=== PATIENT | female | born 1990 | race Caucasian/White ===

== ENCOUNTER 2016-04-24 12:20 | Emergency (ER) | payer OTHER ==
[2016-04-24 12:58] VITALS: BP 112/70; PULSE 109; TEMP 102.9; BMI 31.5
[2016-04-24] MEDS ORDERED: IBUPROFEN 400 MG TABLET (FP) PO ONE ×2 (14:04→14:06)
[2016-04-24] MEDS ORDERED: DEXAMETHASONE SOD PHOSPHATE 10 MG/1 ML VIAL IM ONE (14:29)
--- NOTE | 2016-04-24 14:29 | PDOC ---
History of Present Illness - General Chief Complaint: Sore Throat Stated Complaint: SORE THROAT Time Seen by Provider: 04/24/16 13:22 History Source: Patient Exam Limitations: No Limitations - History of Present Illness Initial Comments: 04/24/16 14:25 cc SORE THROAT, FEVER, CHILLS' COUGHJING X 2 DAYS Timing/Duration: getting worse Severity: moderate Associated Symptoms: reports: cough, fever/chills, malaise. denies: nausea/ vomiting, rash Past History - Past Medical History Allergies/Adverse Reactions: Allergies Allergy/AdvReac Type Severity Reaction Status Date / Time No Known Allergies Allergy Verified 04/24/16 12:53 Home Medications: Ambulatory Orders NK [No Known Home Medication] 04/24/16 Asthma: No Cancer: No Cardiac Disorders: No Diabetes: No HTN: No Seizures: No Thyroid Disease: No Comment:: 04/24/16 14:26 HX CLEFT PALATE - Psycho/Social/Smoking Cessation Hx Anxiety: No Suicidal Ideation: No Smoking History: Never smoked Have you smoked in the past 12 months: No Hx Alcohol Use: No Drug/Substance Use Hx: No Substance Use Type: None Hx Substance Use Treatment: No Review of Systems - Review of Systems Constitutional: Yes: Chills, Fever, Malaise HEENTM: Yes: Throat Pain, Throat Swelling Respiratory: Yes: Cough. No: SOB with Exertion, Stridor, Wheezing Cardiac (ROS): No: Symptoms Reported, Chest Pain *Physical Exam - Vital Signs Last Vital Signs Temp Pulse Resp BP Pulse Ox 102.9 F H 109 H 16 112/70 96 04/24/16 12:54 04/24/16 12:54 04/24/16 12:54 04/24/16 12:54 04/24/16 12:54 - Physical Exam General Appearance: Yes: Appropriately Dressed. No: Apparent Distress, Moderate Distress HEENT: positive: TMs Normal, Pharyngeal Erythema, Tonsillar Exudate, Tonsillar Erythema. negative: TM Bulging, TM Dull, TM Erythema Neck: positive: Supple, Lymphadenopathy (R), Lymphadenopathy (L). negative: Tender, Rigid Respiratory/Chest: positive: Lungs Clear, Normal Breath Sounds. negative: Chest Tender, Accessory Muscle Use, Wheezing Cardiovascular: positive: Regular Rhythm, Regular Rate. negative: Murmur ED Treatment Course - ADDITIONAL ORDERS Additional order review: 04/24/16 13:50 Influenza Types A,B Antigen ([facility]) - Final Nasopharyngeal Swab - Final 04/24/16 13:50 Group A Strep Rapid Antigen - Final Throat - Medications Given in the ED: ED Medications Discontinued Medications Generic Name Dose Route Start Last Admin Trade Name Laurie PRN Reason Stop Dose Admin Ibuprofen 400 mg 04/24/16 14:04 04/24/16 14:12 Motrin - PO 04/24/16 14:05 400 mg ONCE ONE Administration Medical Decision Making - Medical Decision Making 04/24/16 14:27 POSITIVE STREP; WILL TREAT WITH DECADRON, PCN vK; MOTRIN IN ed *DC/Admit/Observation/Transfer Diagnosis at time of Disposition: Acute streptococcal pharyngitis - Discharge Dispostion Disposition: HOME Condition at time of disposition: Stable Admit: No - Patient Instructions Additional Instructions: GARGLE; SEE DR JEAN BAPTISTE FOR REOCCURRING STREP; REST; LOTS OF FLUIDS; FINISH PENICILLIN - Post Discharge Activity Work/School Note: Back to Work
[2016-04-24] MEDS ORDERED: DEXAMETHASONE SOD PHOSPHATE 10 MG/1 ML VIAL ONE (14:32)
== END 2016-04-24 14:37 | disposition home or self-care (01) ==
LOC: JERFT 12:20
PROC: 3E023GC Introduction of Other Therapeutic Substance into Muscle, Percutaneous Approach (ICD-10-PCS; principal; 2016-04-24)
DX: J02.0 Streptococcal pharyngitis (principal)
CPT/HCPCS: 87070; 87077; 87430; 87804; 96372; 99281-25

== ENCOUNTER 2019-04-13 11:51 | Emergency (ER) | payer OTHER ==
[2019-04-13 12:46] VITALS: BP 105/62; PULSE 67; TEMP 98.3; BMI 33.2
[2019-04-13] MEDS ORDERED: LIDOCAINE 5% TOPICAL PATCH TP ONE (14:27)
[2019-04-13] MEDS ORDERED: KETOROLAC TROMETHAMINE 60 MG/2 ML VIAL IM ONE (14:27)
[2019-04-13] MEDS ORDERED: KETOROLAC TROMETHAMINE 60 MG/2 ML VIAL ONE (14:29)
[2019-04-13] MEDS ORDERED: LIDOCAINE 5% TOPICAL PATCH ONE (14:29)
--- NOTE | 2019-04-13 14:30 | PDOC ---
History of Present Illness - General Chief Complaint: Back Pain Stated Complaint: LOWER BACK PAIN Time Seen by Provider: 04/13/19 13:39 History Source: Patient Exam Limitations: No Limitations Past History - Travel Traveled outside of the country in the last 30 days: No Close contact w/someone who was outside of country & ill: No - Past Medical History Allergies/Adverse Reactions: Allergies Allergy/AdvReac Type Severity Reaction Status Date / Time No Known Allergies Allergy Verified 04/13/19 12:38 Home Medications: Ambulatory Orders NK [No Known Home Medication] 04/13/19 Asthma: No Cancer: No Cardiac Disorders: No COPD: No Diabetes: No HTN: No Seizures: No Thyroid Disease: No - Psycho Social/Smoking Cessation Hx Smoking History: Never smoked Have you smoked in the past 12 months: No Hx Alcohol Use: No Drug/Substance Use Hx: No Substance Use Type: None Hx Substance Use Treatment: No Review of Systems - Review of Systems Able to Perform ROS?: Yes Comments:: 04/13/19 14:27 CONSTITUTIONAL: Absent: fever, chills, diaphoresis, generalized weakness, malaise, loss of appetite GASTROINTESTINAL: Absent: abdominal pain, abdominal distension, nausea, vomiting, diarrhea, constipation, melena, hematochezia GENITOURINARY: Absent: dysuria, frequency, urgency, hesitancy, hematuria, flank pain, genital pain MUSCULOSKELETAL: Present: low back pain Absent: arthralgia, joint swelling SKIN: Absent: rash, itching, pallor NEUROLOGIC: Absent: headache, focal weakness or paresthesias, dizziness, unsteady gait, seizure, mental status changes, bladder or bowel incontinence PSYCHIATRIC: Absent: anxiety, depression, suicidal or homicidal ideation, hallucinations. Is the patient limited Macedonian proficient: No *Physical Exam - Vital Signs Last Vital Signs Temp Pulse Resp BP Pulse Ox 98.3 F 67 18 105/62 99 04/13/19 12:44 04/13/19 12:44 04/13/19 12:44 04/13/19 12:44 04/13/19 12:44 - Physical Exam 04/13/19 14:27 GENERAL: Well developed, well nourished. Awake and alert. No acute distress. NECK: Supple. Full ROM. No lymphadenopathy. MUSCULOSKELETAL TTP of the L paraspinous muscles, L3-L5, with palpable knot consistent with muscle spasm. No midline tenderness, (-) straight leg raise. Normal range of motion at all joints. No bony deformities or tenderness. No CVA tenderness. EXTREMITIES: No cyanosis. No clubbing. No edema. No calf tenderness. SKIN: Warm and dry. Normal capillary refill. No rashes. No jaundice. NEUROLOGICAL: Alert, awake, appropriate. Cranial nerves 2-12 intact. No deficits to light touch and temperature in face, upper extremities and lower extremities. No motor deficits in the in face, upper extremities and lower extremities. Normoreflexic in the upper and lower extremities. Normal speech. Toes are down-going bilaterally. Gait is normal without ataxia. PSYCHIATRIC: Cooperative. Good eye contact. Appropriate mood and affect. Medical Decision Making - Medical Decision Making 04/13/19 14:27 The patient is a 28-year-old female no past medical history who presents to the ER with low back pain for the past 5 days. She states it started after lifting a 5 gallon jug of water. She notes this on the left side. Does not go down her leg. She has been using Tylenol and Motrin with little relief of her symptoms. Denies fevers, chills, trauma, urinary symptoms, numbness and tingling to the extremities, saddle anesthesia and bladder bowel incontinence. A/P: Low back pain -Pt with TTP of the L paraspinous muscles, L3-L5, with palpable knot consistent with muscle spasm. No midline tenderness, (-) straight leg raise -No trauma, or fever. No saddle anesthesia or bladder/bowel incontinence. No CVA tenderness. -Pt is neurologically intact on exam with no focal findings. -Toradol given with relief of symptoms -DC home. Ortho follow up given for if symptoms do not resolve. -I discussed the physical exam findings, ancillary test results and final diagnoses with the patient. I answered all of the patient's questions. The patient was satisfied with the care received and felt comfortable with the discharge plan and treatment plan. The Patient agrees to follow up with the primary care physician/specialist within 24-72 hours. Return precautions were given. Discharge - Discharge Information Problems reviewed: Yes Clinical Impression/Diagnosis: Back pain Qualifiers: Back pain location: low back pain Chronicity: acute Back pain laterality: left Sciatica presence: without sciatica Qualified Code(s): M54.5 - Low back pain Condition: Stable Disposition: HOME - Admission No - Follow up/Referral Referrals: Landen Mitchell DO [Staff Physician] - - Patient Discharge Instructions Patient Printed Discharge Instructions: DI for Low Back Pain Additional Instructions: You have low back pain due to a muscle spasm. Please take ibuprofen 800 mg 3 times a day not to exceed 3000 mg a day. You were also prescribed Flexeril. Please take this medication every 8 hours for the first day. Then take the medication before you go to bed. Do not drive after taking this medication as it may make you sleepy. You may use warm compresses on your back to help with her symptoms. Please follow-up with your primary care doctor. If your symptoms do not resolve in 3-5 days, follow-up with orthopedics. A referral has been provided for you. Return to the emergency department if you have worsening back pain, bladder or bowel incontinence, numbness and tingling in her legs, changes in the way you walk, or any new or worsening symptoms. - Post Discharge Activity
== END 2019-04-13 14:44 | disposition home or self-care (01) ==
LOC: JERFT 11:51
PROC: 3E0233Z Introduction of Anti-inflammatory into Muscle, Percutaneous Approach (ICD-10-PCS; principal; 2019-04-13)
DX: M62.830 Muscle spasm of back (principal); M54.5 Low back pain
CPT/HCPCS: 96372; 99282-25

== ENCOUNTER 2019-10-14 23:12 | Emergency (ER) | payer OTHER ==
[2019-10-14 23:17] VITALS: BP 135/93; PULSE 83; TEMP 98; BMI 32.1
--- NOTE | 2019-10-14 23:30 | PDOC ---
History of Present Illness - General Chief Complaint: Urinary Problem Stated Complaint: ANXIETY/UTI Time Seen by Provider: 10/14/19 23:18 History Source: Patient Exam Limitations: No Limitations - History of Present Illness Initial Comments: 10/14/19 23:29 This is a 29-year-old female who comes in complaining of a urinary tract infection with associated dysuria this evening. Patient has history of urinary tract infections in the past. Patient otherwise no tingling of her fingers and feet after taking buspirone. Patient denied feeling anxious or any other symptoms. Patient denies any flank pain, back pain fever or chills. Allergies: as per nursing notes Past Medical History: none Social history: Lives with family. No smoking. No alcohol. No illicit drugs. Surgical history: None General: No fevers or chills, no weakness, no weight loss HEENT: No change in vision. No sore throat,. No ear pain CardioVascular: no chest discomfort. No shortness of breath Respiratory:No cough, or wheezing. Gastrointestinal: no nausea, vomiting, diarrhea or constipation, No rectal bleeding Genitourinary: + dysuria, hematuria, or frequency Musculoskeletal: No joint or muscle pain or swelling Neurologic: No headache, vertigo, dizziness or loss of consciousness Psychiatric: nor depression Skin: No rashes or easy bruising Endocrine: no increased thirst or abnormal weight change Allergic: no skin or latex allergy All other systems reviewed and normal GENERAL: The patient is awake, alert, and fully oriented, in no acute distress. HEENT:Head is normal with no signs of trauma. Eyes: Pupils equal, round and reactive to light, Ears, and Throat are normal. Neck is supple. No Lymphadenopathy. Back/flank there is no CVA or flank tenderness on palpation or percussion EXTREMITIES:atraumatic, Normal range of motion, no edema. NEUROLOGICAL: Normal speech, normal gait. PSYCH: Normal mood, normal affect. SKIN: Warm, Dry, normal turgor, no rashes or lesions noted. 10/14/19 23:38 Patient's urine was positive for urinary tract infection. Patient started on Macrobid and discharged patient had prescription for Macrobid sent to her pharmacy Past History - Medical History Allergies/Adverse Reactions: Allergies Allergy/AdvReac Type Severity Reaction Status Date / Time No Known Allergies Allergy Verified 04/13/19 12:38 Home Medications: Ambulatory Orders Buspirone HCl [Buspar -] 5 mg PO DAILY 10/14/19 Nitrofurantoin Monohyd/M-Cryst [Macrobid -] 100 mg PO BID #14 capsule 10/14/19 Asthma: No Cancer: No Cardiac Disorders: No COPD: No Diabetes: No HTN: No Psychiatric Problems: Yes (ANXIETY/STRESS) Seizures: No Thyroid Disease: No - Reproductive History Is Patient Now?: No - Psycho-Social/Smoking History Smoking History: Never smoked Have you smoked in the past 12 months: No *Physical Exam - Vital Signs Last Vital Signs Temp Pulse Resp BP Pulse Ox 98 F 83 18 135/93 98 10/14/19 23:13 10/14/19 23:13 10/14/19 23:13 10/14/19 23:13 10/14/19 23:13 Discharge - Discharge Information Problems reviewed: Yes Clinical Impression/Diagnosis: Urinary tract infection Condition: Stable Disposition: HOME - Admission No - Additional Discharge Information Prescriptions: Nitrofurantoin Monohyd/M-Cryst [Macrobid -] 100 mg PO BID #14 capsule - Follow up/Referral Referrals: Latasha Mcgill MD [Primary Care Provider] - - Patient Discharge Instructions Additional Instructions: Take Macrobid 1 tablet twice a day for 7 days. Return to the emergency department immediately with ANY new, persistent or worsening symptoms. Continue any medications as previously prescribed by your physician. You should follow up with your primary doctor as soon as possible regarding today's emergency department visit. . Please make sure your doctor reviews the results of your emergency evaluation. Thank you for coming to the Emergency Department today for your care. It was a pleasure to see you today. Please note that your evaluation is INCOMPLETE until you follow-up with your doctor. - Post Discharge Activity
[2019-10-14 23:33] LABS: EPITHELIAL CELLS MODERATE /hpf
[2019-10-14] MEDS ORDERED: NITROFURANTOIN MACROCRYSTAL 50 MG CAPSULE (FP) ONE (23:35)
[2019-10-14] MEDS ORDERED: NITROFURANTOIN MACROCRYSTAL 50 MG CAPSULE (FP) PO SCH (23:45)
== END 2019-10-14 23:42 | disposition home or self-care (01) ==
LOC: FER 23:12
DX: N39.0 Urinary tract infection, site not specified (principal)
CPT/HCPCS: 81003; 81015; 87086; 99283-25

== ENCOUNTER 2020-08-15 13:06 | Emergency (ER) | payer OTHER ==
[2020-08-15 13:35] VITALS: BP 129/78; PULSE 80; TEMP 98.1; BMI 36.1
== END 2020-08-15 14:27 | disposition home or self-care (01) ==
LOC: JER 13:06 → JERFT 13:06
DX: S80.02XA Contusion of left knee, initial encounter (principal); S63.501A Unspecified sprain of right wrist, initial encounter
CPT/HCPCS: 73090-TC-RT-FY; 73110-TC-RT-FY; 99284-25

== ENCOUNTER 2021-06-29 05:57 | Emergency (ER) | payer OTHER ==
[2021-06-29 06:17] VITALS: BP 112/68; PULSE 72; TEMP 97.6; BMI 38.5
[2021-06-29 08:08] LABS: EPI CELLS 9 /uL (0-25.1); HYALINE CASTS 2 /uL (0-3.1); URINE APPEARANCE CLEAR; URINE BACTERIA 476 /uL (0-1359); URINE BILIRUBIN NEGATIVE (NEGATIVE); URINE COLOR YELLOW; URINE GLUCOSE (UA) NEGATIVE (NEGATIVE); URINE KETONE NEGATIVE (NEGATIVE); URINE LEUK ESTERASE 3+ (NEGATIVE); URINE NITRITE NEGATIVE (NEGATIVE); URINE PROTEIN NEGATIVE (NEGATIVE); URINE RBC 19 /uL (0-23.9); URINE UROBILINOGEN 0.2 mg/dL (0.2-1.0); URINE WBC 549 /uL (0-25.8)
== END 2021-06-29 07:56 | disposition home or self-care (01) ==
LOC: JER 05:57
DX: O23.592 Infection of other part of genital tract in pregnancy, second trimester (principal); N30.00 Acute cystitis without hematuria; Z3A.17 17 weeks gestation of pregnancy
CPT/HCPCS: 81003; 87086; 87186; 99283-25

== ENCOUNTER 2021-11-13 03:30 | Inpatient (IN) | payer OTHER ==
[2021-11-13] MEDS ORDERED: ELECTROLYTE-148 SOLN 1,000 ML IV SCH ×2 (04:00→08:00)
[2021-11-13] MEDS ORDERED: BUTORPHANOL TARTRATE 2 MG/ML VIAL ONE (04:21)
[2021-11-13] MEDS ORDERED: PROMETHAZINE HCL 25 MG/1 ML VIAL ONE (04:21)
[2021-11-13 04:28] LABS: BASO % 0.3 % (0-2.0); EOS % 2.9 % (0-4.5); HEMOGLOBIN 11.5 GM/dL (10.7-15.3); LYMPH % 20.8 % (8-40); MCH 26.2 pg (25.7-33.7); MCHC 33.6 g/dl (32.0-36.0); MEAN CELL VOLUME 77.8 fl (80-96); MEAN PLT VOLUME 6.3 fl (7.5-11.1); MONO % 9.2 % (3.8-10.2); NEUT % 66.8 % (42.8-82.8); PLATELET COUNT 395 10^3/uL (134-434); RBC 4.38 M/mm3 (3.60-5.2); WHITE BLOOD COUNT 13.4 K/mm3 (4.0-10.0)
[2021-11-13] MEDS ORDERED: BUTORPHANOL TARTRATE 2 MG/ML VIAL IVPB ONE (04:30)
[2021-11-13] MEDS ORDERED: PROMETHAZINE HCL 25 MG/1 ML VIAL IVPB ONE (04:30)
[2021-11-13 04:34] LABS: INR 0.98 (0.83-1.09); PROTHROMBIN TIME (PATIENT) 11.3 SEC (9.7-13.0)
[2021-11-13 04:37] LABS: ACTIVATED PTT 27.9 SECONDS (25.2-36.5)
[2021-11-13 04:47] LABS: CALCIUM 8.7 mg/dL (8.5-10.1)
[2021-11-13 04:48] LABS: BLOOD UREA NITROGEN 6.1 mg/dL (7-18)
[2021-11-13 04:51] LABS: CREATININE 0.4 mg/dL (0.55-1.3)
[2021-11-13 05:04] VITALS: BMI 43.9
[2021-11-13] MEDS ORDERED: OXYTOCIN 20 UNITS in 0.9% NS 20 UNIT/1,000 ML INFUS.BAG IV ONE (07:14)
[2021-11-13] MEDS ORDERED: WITCH HAZEL 50% (TUCKS) 40 PAD/JAR PAD TP PRN (08:00)
[2021-11-13] MEDS ORDERED: BENZOCAINE 28 GM HEMORRHOIDAL OINTMENT TP PRN (08:00)
[2021-11-13] MEDS ORDERED: BENZOCAINE 20% 57 GM BOTTLE TP PRN (08:00)
[2021-11-13] MEDS ORDERED: METHYLERGONOVINE MALEATE 0.2 MG/1 ML AMP IM PRN (08:00)
[2021-11-13] MEDS ORDERED: ACETAMINOPHEN 325 MG TABLET (FP) PO PRN (08:00)
[2021-11-13] MEDS ORDERED: OXYTOCIN 20 UNITS in 0.9% NS 20 UNIT/1,000 ML INFUS.BAG IV SCH (08:00)
[2021-11-13] MEDS ORDERED: oxyCODONE HCL 5 MG TABLET PO PRN (08:00)
[2021-11-13] MEDS ORDERED: BISACODYL 10 MG SUPP.RECT RC PRN (08:00)
[2021-11-13 09:25] LABS: CORD BASE EXCESS -5.3 mmol/L (0-2); CORD HCO3 20.5 mmHg (20-29); CORD PCO2 40.9 mmHg (30-78); CORD pH 7.318 (7.14-7.44)
[2021-11-13] MEDS: FERROUS SO4 325 MG TABLET (FP) PO SCH ×3 (12:21→17:41)
[2021-11-13] MEDS: PRENATAL VITAMINS W/ FOLIC ACID TABLET (FP) PO SCH (12:26)
[2021-11-13] MEDS: IBUPROFEN 600 MG TABLET (FP) PO PRN ×2 (12:30→22:52)
[2021-11-14] MEDS: IBUPROFEN 600 MG TABLET (FP) PO PRN ×2 (06:12→16:58)
[2021-11-14 08:12] LABS: BASO % 0.8 % (0-2.0); EOS % 2.2 % (0-4.5); HEMATOCRIT 33.2 % (32.4-45.2); HEMOGLOBIN 10.8 GM/dL (10.7-15.3); LYMPH % 22.2 % (8-40); MCH 25.3 pg (25.7-33.7); MCHC 32.6 g/dl (32.0-36.0); MEAN CELL VOLUME 77.6 fl (80-96); MEAN PLT VOLUME 6.5 fl (7.5-11.1); MONO % 8.6 % (3.8-10.2); NEUT % 66.2 % (42.8-82.8); PLATELET COUNT 407 10^3/uL (134-434); RBC 4.28 M/mm3 (3.60-5.2); RDW 16.5 % (11.6-15.6); WHITE BLOOD COUNT 12.6 K/mm3 (4.0-10.0)
[2021-11-14] MEDS: FERROUS SO4 325 MG TABLET (FP) PO SCH ×3 (08:55→16:59)
[2021-11-14] MEDS: PRENATAL VITAMINS W/ FOLIC ACID TABLET (FP) PO SCH ×2 (08:55→10:08)
[2021-11-14] MEDS ORDERED: SENNOSIDES/DOCUSATE COMBO (SENNA PLUS) TABLET (UD) PO PRN (22:00)
[2021-11-14 22:05] VITALS: TEMP 98.1
[2021-11-15] MEDS: IBUPROFEN 600 MG TABLET (FP) PO PRN ×2 (03:15→09:04)
[2021-11-15] MEDS: FERROUS SO4 325 MG TABLET (FP) PO SCH ×2 (08:51→11:45)
[2021-11-15 10:46] VITALS: BP 125/76; PULSE 66; RESP 14
[2021-11-15] MEDS: PRENATAL VITAMINS W/ FOLIC ACID TABLET (FP) PO SCH (11:45)
== END 2021-11-15 14:05 | disposition home or self-care (01) | DRG 560 ==
LOC: JLDR 03:30 → J3W 09:55
PROVIDERS: ADMIT Obstetrics & Gynecology; ATTEND Obstetrics & Gynecology
PROC: 10E0XZZ Delivery of Products of Conception, External Approach (ICD-10-PCS; principal; 2021-11-13)
DX: O36.63X0 Maternal care for excessive fetal growth, third trimester, not applicable or unspecified (principal); O99.214 Obesity complicating childbirth; Z3A.38 38 weeks gestation of pregnancy; Z37.0 Single live birth
CPT/HCPCS: 36415; 36600; 59409; 80048; 82803; 85025; 85610; 85730; 86780; 86850; 86900; 86901; C9803-CS; U0003; U0005

== ENCOUNTER 2022-05-21 09:52 | Emergency (ER) | payer OTHER ==
[2022-05-21 10:11] VITALS: BP 119/78; PULSE 86; RESP 18; TEMP 98; BMI 37.0
[2022-05-21] MEDS ORDERED: IBUPROFEN 400 MG TABLET (FP) PO ONE ×2 (10:59→11:12)
== END 2022-05-21 11:45 | disposition home or self-care (01) ==
LOC: JERFT 09:52
DX: S39.012A Strain of muscle, fascia and tendon of lower back, initial encounter (principal); V49.40XA Driver injured in collision with unspecified motor vehicles in traffic accident, initial encounter; Y93.I9 Activity, other involving external motion
CPT/HCPCS: 99283-25

== ENCOUNTER 2023-09-05 08:06 | Day surgery (SDC) | payer OTHER ==
[2023-09-02 15:34] VITALS: BMI 37.0
[2023-09-05] MEDS ORDERED: CEFAZOLIN SODIUM 2 GM in DEXTROSE 5%-WATER 100 ML IVPB ONE (08:12)
[2023-09-05] MEDS ORDERED: ceFAZolin SODIUM 1 GM VIAL ONE (08:54)
[2023-09-05] MEDS ORDERED: METOCLOPRAMIDE HCL INJECTION 10 MG/2 ML VIAL ONE (08:54)
[2023-09-05] MEDS ORDERED: DEXAMETHASONE SOD PHOSPHATE 4 MG/1 ML VIAL ONE (08:54)
[2023-09-05] MEDS ORDERED: SODIUM CHLORIDE 0.9% P/F 10 ML VIAL IJ ONE (08:54)
[2023-09-05] MEDS ORDERED: PROPOFOL 40 ML ONE (08:54)
[2023-09-05] MEDS ORDERED: ONDANSETRON 4 MG/2 ML VIAL ONE (08:54)
[2023-09-05] MEDS ORDERED: MIDAZOLAM HCL 2 MG/2 ML SINGLE DOSE VIAL ONE (08:55)
[2023-09-05] MEDS ORDERED: ROPIVACAINE HCL/PF 100 MG/20 ML VIAL ONE (09:43)
[2023-09-05] MEDS ORDERED: BUPIVACAINE HCL/EPINEPHRINE/PF 30 ML VIAL IJ ONE (10:00)
[2023-09-05] MEDS ORDERED: LACTATED RINGERS SOLUTION 1,000 ML IV SCH (10:15)
[2023-09-05] MEDS: BUPIVACAINE HCL/EPINEPHRINE/PF 30 ML VIAL IJ ONE (11:20)
[2023-09-05] MEDS ORDERED: KETOROLAC TROMETHAMINE 30 MG/1 ML VIAL ONE (11:23)
[2023-09-05] MEDS ORDERED: oxyCODONE HCL 5 MG TABLET PO PRN (11:55)
[2023-09-05] MEDS ORDERED: ACETAMINOPHEN 1000 MG/100 ML BAG IVPB ONE (11:55)
[2023-09-05] MEDS: ACETAMINOPHEN 1000 MG/100 ML BAG IVPB ONE (11:55)
[2023-09-05 12:50] VITALS: PULSE 76; RESP 18; TEMP 97.2
[2023-09-05 13:35] VITALS: BP 128/72
== END 2023-09-05 13:34 | disposition home or self-care (01) ==
LOC: FASU 08:06
PROVIDERS: ATTEND Orthopaedic Surgery
PROC: 0LS34ZZ Reposition Right Upper Arm Tendon, Percutaneous Endoscopic Approach (ICD-10-PCS; principal; 2023-09-05 10:43)
PROC: 0RBJ4ZZ Excision of Right Shoulder Joint, Percutaneous Endoscopic Approach (ICD-10-PCS; 2023-09-05 10:43)
DX: S46.011D Strain of muscle(s) and tendon(s) of the rotator cuff of right shoulder, subsequent encounter (principal); M75.21 Bicipital tendinitis, right shoulder; M75.51 Bursitis of right shoulder; M65.811 Other synovitis and tenosynovitis, right shoulder; S43.431D Superior glenoid labrum lesion of right shoulder, subsequent encounter; M75.01 Adhesive capsulitis of right shoulder
CPT/HCPCS: 81025; 88304-TC; 94760; C1713; J0131